=== PATIENT | male | born 1960 | race Caucasian/White ===

== ENCOUNTER → 2016-12-02 | Outpatient (CLI) | payer OTHER ==
[2016-12-02 13:09] LABS: HEMATOCRIT 49.9 % (39.2-51.8); HEMOGLOBIN 16.7 g/dL (13.7-18.0); WHITE BLOOD COUNT 6.5 x10^3/uL (3.4-10)
[2016-12-02 13:23] LABS: BLOOD UREA NITROGEN 12 mg/dL (7-18)
[2016-12-02 13:36] LABS: ASPARTATE AMINO TRANSFERASE 15 U/L (15-37)
[2016-12-02 13:37] LABS: PROSTATE SPECIFIC ANTIGEN 0.33 ng/mL (0.00-4.00)
== END | disposition home or self-care (01) ==
LOC: LAB 12:47
PROVIDERS: ATTEND Specialist
DX: E78.5 Hyperlipidemia, unspecified (principal); E34.9 Endocrine disorder, unspecified; E55.9 Vitamin D deficiency, unspecified; R53.83 Other fatigue
CPT/HCPCS: 36415; 80053; 80061; 82306; 82670; 84153; 84402; 84403; 84436; 84443; 84481; 85025; 86376

== ENCOUNTER 2018-11-11 17:44 | Emergency (ER) | payer OTHER ==
[~2018-11-11] VITALS: Ht 182.9 cm; Wt 117.5 kg
[2018-11-11 17:53] VITALS: BP 163/97
[2018-11-11] MEDS ORDERED: CYCLOBENZAPRINE 10 MG TABLET ONE (18:20)
[2018-11-11] MEDS ORDERED: KETOROLAC 30 MG/1 ML ONE (18:21)
[2018-11-11] MEDS ORDERED: CYCLOBENZAPRINE 10 MG TABLET PO ONE (18:30)
[2018-11-11] MEDS ORDERED: KETOROLAC 30 MG/1 ML IM ONE (18:30)
--- NOTE | 2018-11-11 18:59 | NUR ---
REPORT FROM SKY ESTRELLA, ASSUMED CARE OF PATIENT AT THIS TIME.
--- NOTE | 2018-11-11 19:13 | NUR ---
Patient/Caregiver given discharge instructions and they have confirmed that they understand the instructions. Patient ambulatory with steady gait.
== END 2018-11-11 19:15 | disposition home or self-care (01) ==
LOC: ED 19:06
DX: M51.34 Other intervertebral disc degeneration, thoracic region (principal); M54.6 Pain in thoracic spine
CPT/HCPCS: 71046; 72072; 93005; 96372; 99284; J1885; 99283

== ENCOUNTER 2018-11-13 06:33 | Emergency (ER) | payer OTHER ==
[~2018-11-13] VITALS: Ht 182.9 cm; Wt 118.3 kg
--- NOTE | 2018-11-13 07:08 | NUR ---
PT STATES THAT HE WAS SEEN AT [facility] YESTERDAY FOR SHOULDER PAIN (Known rotator cuff injury). Presents today as right arm fine motor 3/5, gross motor 5/5 associated with continued shoulder pain However, sensation 5/5. Took flexaril/lyrica/aleve this am Fast negative-no other deficits beside rue motor weakness
[2018-11-13] MEDS ORDERED: HYDROcodone/APAP 5/325 TABLET ONE (07:55)
[2018-11-13] MEDS ORDERED: HYDROcodone/APAP 5/325 TABLET PO ONE (08:00)
--- NOTE | 2018-11-13 08:03 | NUR ---
OFFERED REQUESTED PAIN MEDICATION- HOWEVER APTIENT REFUSED "I THINK IM GOING HOME SOON NOW. SO WE SHOULDN'T BOTHER." REMAIN WITH RIGHT SHOULDER/RUE MOTOR WEAKNESS/NERVE PAIN
--- NOTE | 2018-11-13 09:02 | NUR ---
NO CHANGE IN EXAM WITH RE-ASSESSMENT ICE PACK IN PLACE PROVIDER TO BEDSIDE TO REVIEWED TESTING RESULTS (POC)
[2018-11-13 09:34] VITALS: BP 153/79
== END 2018-11-13 09:36 | disposition home or self-care (01) ==
LOC: ED 08:53
DX: M54.6 Pain in thoracic spine (principal); M79.631 Pain in right forearm
CPT/HCPCS: 72141; 93005; 99284

== ENCOUNTER 2019-03-12 09:56 | Outpatient (CLI) | payer OTHER ==
[2019-03-12 10:23] LABS: ALANINE AMINOTRANSFERASE 72 U/L (12-78); ALBUMIN 3.8 g/dL (3.4-5.0); ANION GAP 7 mmol/L (5-15); CALCIUM 8.4 mg/dL (8.5-10.1); CHLORIDE 106 mmol/L (98-107); CHOLESTEROL, TOTAL 204 mg/dL (140-239); CREATININE 1.02 mg/dL (0.7-1.3)
[2019-03-12 10:28] LABS: ALKALINE PHOSPHATASE 60 U/L (45-117); BILIRUBIN,TOTAL 0.6 mg/dL (0.2-1.0); CHOL/HDL RATIO 5.2; HDL CHOL % 19 % (26-37); HDL CHOLESTEROL (DIRECT) 39 mg/dL (40-60); LDL CHOLESTEROL,CALCULATED 125 mg/dL (54-169); LDL/HDL RATIO 3.2 (0.5-3.0); TOTAL PROTEIN 7.1 g/dL (6.4-8.2); TRIGLYCERIDES 200 mg/dL (50-200); VLDL CHOLESTEROL 40 mg/dL (0-25)
[2019-03-12 12:46] LABS: HEMOGLOBIN A1C 6.3 % (4.2-6.3)
== END 2019-03-12 23:59 | disposition home or self-care (01) ==
LOC: LAB 09:56
PROVIDERS: ATTEND Family Medicine
DX: Z13.220 Encounter for screening for lipoid disorders (principal); Z13.1 Encounter for screening for diabetes mellitus; Z12.5 Encounter for screening for malignant neoplasm of prostate
CPT/HCPCS: 36415; 80053; 80061; 83036; G0103

== ENCOUNTER 2019-08-23 12:57 | Outpatient (CLI) | payer OTHER | END 2019-08-23 23:59 | disposition home or self-care (01) | LOC: CFH 12:57 | PROVIDERS: ATTEND Internal Medicine | DX: J47.9 Bronchiectasis, uncomplicated (principal); R94.2 Abnormal results of pulmonary function studies | CPT/HCPCS: 71250 ==

== ENCOUNTER → 2020-06-09 | Outpatient (CLI) | payer OTHER ==
[2020-06-09 10:30] LABS: ALBUMIN 4.1 g/dL (3.4-5.0); ANION GAP 6 mmol/L (5-15); CALCIUM 8.9 mg/dL (8.5-10.1); CHLORIDE 109 mmol/L (98-107)
[2020-06-09 10:37] LABS: ALANINE AMINOTRANSFERASE 73 U/L (12-78); ALKALINE PHOSPHATASE 67 U/L (45-117); BILIRUBIN,TOTAL 0.6 mg/dL (0.2-1.0); CHOL/HDL RATIO 4.4; CHOLESTEROL, TOTAL 202 mg/dL (140-239); CREATININE 1.03 mg/dL (0.7-1.3); HDL CHOL % 23 % (26-37); HDL CHOLESTEROL (DIRECT) 46 mg/dL (40-60); LDL CHOLESTEROL,CALCULATED 130 mg/dL (54-169); LDL/HDL RATIO 2.8 (0.5-3.0); TOTAL PROTEIN 7.4 g/dL (6.4-8.2); TRIGLYCERIDES 129 mg/dL (50-200); VLDL CHOLESTEROL 26 mg/dL (0-25)
== END | disposition home or self-care (01) ==
LOC: LAB 10:06
PROVIDERS: ATTEND Family Medicine
DX: Z12.5 Encounter for screening for malignant neoplasm of prostate (principal); Z13.220 Encounter for screening for lipoid disorders; Z13.1 Encounter for screening for diabetes mellitus
CPT/HCPCS: 36415; 80053; 80061; 83036; 84153; G0103

== ENCOUNTER → 2020-06-20 | Outpatient (CLI) | payer OTHER | END | disposition home or self-care (01) | LOC: CVU 14:15 | PROVIDERS: ATTEND Family Medicine | DX: I08.8 Other rheumatic multiple valve diseases (principal); I11.9 Hypertensive heart disease without heart failure; E78.5 Hyperlipidemia, unspecified | CPT/HCPCS: 93306; 93356 ==